=== PATIENT | female | born 1980 | race African-American/Black ===

== ENCOUNTER 2017-02-01 04:02 | Emergency (ER) | payer MEDICARE, OTHER ==
[~2017-02-01] VITALS: Ht 167.6 cm; Wt 64.5 kg
[2017-02-01] VITALS (7 sets, daily range): BP systolic 114–133; BP diastolic 61–82; PULSE 68–81; RESP 15–18; TEMP 97.9; O2SAT 97–100
[~2017-02-01 04:02] MED LIST: LEVO-144 PO; METR500T10 PO
[2017-02-01] MEDS ORDERED: XANA1TAB2 PO (04:12)
[2017-02-01] MEDS ORDERED: FURO1TAB62 PO (04:12)
[2017-02-01] MEDS ORDERED: POTA-163 PO (04:12)
--- NOTE | 2017-02-01 04:41 | PD ---
HPI Chief Complaint: Chest Pain Time Seen by Provider: 04:28 Travel History International Travel<30 days: No Contact w/Intl Traveler<30days: No Traveled to known affect area: No History of Present Illness HPI The patient is a 36-year-old [place] female who presents to the emergency department for chest pain. The patient states she developed chest pain yesterday which is located under the left breast and radiates along the left sternum. The pain is described as sharp, worse with lying supine, slightly worse with inspiration, and slightly improved with sitting upright. She denies any shortness of breath, nausea, or vomiting. She denies any trauma to left chest wall. The patient denies any history coronary artery disease, hypertension, hyperlipidemia, diabetes, or previous CAD. She does have a history of smoking marijuana, but denies any tobacco use. She denies any significant early family medical history for CAD. The patient does have a history of hereditary familial lymphedema for which she takes Lasix and potassium pills with chronic left lower extremity lymphedema. She denies any acute swelling of the right lower extremity. She denies any fever, chills, or sweats. She does note a dry and nonproductive cough which occasionally exacerbates her pain. The patient denies any recent hospitalizations, surgeries , or significant travel, however, does take oral contraceptive pills. PFSH Past Medical History Hx Anticoagulant Therapy: No Anemia: Yes Anxiety: Yes Depression: Yes Cancer: No Diminished Hearing: No Headaches: Yes Musculoskeletal: No Psychiatric: Yes Respiratory: No Immunizations Current: Yes Migraines: Yes Influenza Vaccination: No ?: Unknown LMP: CURRENTLY : 1 Para: 0 Miscarriage: 0 : 1 Ectopic : Yes Tubal Ligation: Yes Past Surgical History Abdominal Surgery: Yes Gynecologic Surgery: Yes Joint Replacement: No Other Surgery: Yes Social History Alcohol Use: Yes (occas) Tobacco Use: Yes Substance Use: Yes (marijuana use) Allergies-Medications (Allergen,Severity, Reaction): Coded Allergies: No Known Allergies (Verified , 02/01/17) Reported Meds & Prescriptions Reported Meds & Active Scripts Active Levonorgestrel-Ethinyl Estradiol (Triphasic) 0.05-03/0.075-0.04/0.125-0.03 Mg Tab 1 Tab PO DAILY Reported Xanax (Alprazolam) 1 Mg Tab 1 Mg PO Q12HR PRN Lasix (Furosemide) 20 Mg Tab 10 Mg PO DAILY Potassium Chloride ER (Potassium Chloride) 20 Meq Tab 20 Meq PO DAILY Review of Systems Except as stated in HPI: all other systems reviewed are Neg HENT: No: Lightheadedness Cardiovascular: Positive: Chest Pain or Discomfort, No: Dyspnea on exertion Respiratory: Positive: Cough, Orthopnea, No: Shortness of Breath Gastrointestinal: No: Nausea, Vomiting, Abdominal Pain Musculoskeletal: Positive: Edema (chronic left lower extremity lymphedema) Skin: No Rash Physical Exam Narrative GENERAL: Awake, alert, very pleasant 36-year-old female who appears her stated age and is in no acute respiratory distress. SKIN: Focused skin assessment warm/dry. HEAD: Atraumatic. Normocephalic. EYES: Pupils equal and round. No scleral icterus. No injection or drainage. ENT: No nasal bleeding or discharge. Mucous membranes pink and moist. NECK: Trachea midline. No JVD. CARDIOVASCULAR: Regular rate and rhythm. No murmur appreciated. Heart rate in the 70s. Palpation of the chest wall produces pain, however, does not reproduce her pain. RESPIRATORY: No accessory muscle use. Clear to auscultation. Breath sounds equal bilaterally. GASTROINTESTINAL: Abdomen soft, non-tender, nondistended. No rebound tenderness. MUSCULOSKELETAL: No obvious deformities. No clubbing. No cyanosis. Lymphedema the left lower extremity. NEUROLOGICAL: Awake and alert. No obvious cranial nerve deficits. Motor grossly within normal limits. Normal speech. PSYCHIATRIC: Appropriate mood and affect; insight and judgment normal. Data Data Last Documented VS Vital Signs Date Time Temp Pulse Resp B/P (MAP) Pulse Ox O2 Delivery O2 Flow Rate FiO2 02/01/17 05:26 72 16 115/74 (88) 100 Room Air 02/01/17 04:04 97.9 Orders Orders Electrocardiogram (02/01/17 ) Electrocardiogram (02/01/17 04:33) Ckmb (Isoenzyme) Profile (02/01/17 04:33) Complete Blood Count With Diff (02/01/17 04:33) Comprehensive Metabolic Panel (02/01/17 04:33) Magnesium (Mg) (02/01/17 04:33) Prothrombin Time / Inr (Pt) (02/01/17 04:33) Act Partial Throm Time (Ptt) (02/01/17 04:33) Troponin I (02/01/17 04:33) Lipase (02/01/17 04:33) Chest, Single Ap (02/01/17 04:33) Ecg Monitoring (02/01/17 04:33) Bilateral Bp Monitoring (02/01/17 04:33) Iv Access Insert/Monitor (02/01/17 04:33) Oximetry (02/01/17 04:33) Oxygen Administration (02/01/17 04:33) Aspirin Chew (Aspirin Chew) (02/01/17 04:45) Morphine Inj (Morphine Inj) (02/01/17 04:45) Sodium Chloride 0.9% Flush (Ns Flush) (02/01/17 04:45) Ondansetron Inj (Zofran Inj) (02/01/17 04:45) Ct Pulmonary Angiogram (02/01/17 ) Iohexol 350 Inj (Omnipaque 350 Inj) (02/01/17 05:08) CKMB (02/01/17 04:30) CKMB% (02/01/17 04:30) Potassium Chloride (Kcl) (02/01/17 05:15) Labs Laboratory Tests Test 02/01/17 04:30 White Blood Count 6.2 TH/MM3 Red Blood Count 4.12 MIL/MM3 Hemoglobin 11.5 GM/DL Hematocrit 35.4 % Mean Corpuscular Volume 85.9 FL Mean Corpuscular Hemoglobin 27.8 PG Mean Corpuscular Hemoglobin Concent 32.4 % Red Cell Distribution Width 13.5 % Platelet Count 233 TH/MM3 Mean Platelet Volume 9.7 FL Neutrophils (%) (Auto) 57.0 % Lymphocytes (%) (Auto) 31.5 % Monocytes (%) (Auto) 9.8 % Eosinophils (%) (Auto) 1.2 % Basophils (%) (Auto) 0.5 % Neutrophils # (Auto) 3.5 TH/MM3 Lymphocytes # (Auto) 1.9 TH/MM3 Monocytes # (Auto) 0.6 TH/MM3 Eosinophils # (Auto) 0.1 TH/MM3 Basophils # (Auto) 0.0 TH/MM3 CBC Comment DIFF FINAL Differential Comment Prothrombin Time 11.4 SEC Prothromb Time International Ratio 1.0 RATIO Activated Partial Thromboplast Time 29.6 SEC Blood Urea Nitrogen 13 MG/DL Creatinine 1.05 MG/DL Random Glucose 99 MG/DL Total Protein 7.0 GM/DL Albumin 3.6 GM/DL Calcium Level 8.0 MG/DL Magnesium Level 1.9 MG/DL Alkaline Phosphatase 47 U/L Aspartate Amino Transf (AST/SGOT) 15 U/L Alanine Aminotransferase (ALT/SGPT) 19 U/L Total Bilirubin 0.5 MG/DL Sodium Level 140 MEQ/L Potassium Level 3.2 MEQ/L Chloride Level 108 MEQ/L Carbon Dioxide Level 27.2 MEQ/L Anion Gap 5 MEQ/L Estimat Glomerular Filtration Rate 73 ML/MIN Total Creatine Kinase 193 U/L Creatine Kinase MB 1.3 NG/ML Creatine Kinase MB % 0.7 % Troponin I LESS THAN 0.02 NG/ML Lipase 215 U/L MDM Medical Decision Making Medical Screen Exam Complete: Yes Emergency Medical Condition: Yes Medical Record Reviewed: Yes Interpretation(s) EKG reveals normal sinus rhythm with a rate of 72. No ischemic changes or ectopy noted. No ID depression to suggest pericarditis. Laboratory Tests Test 02/01/17 04:30 White Blood Count 6.2 TH/MM3 Red Blood Count 4.12 MIL/MM3 Hemoglobin 11.5 GM/DL Hematocrit 35.4 % Mean Corpuscular Volume 85.9 FL Mean Corpuscular Hemoglobin 27.8 PG Mean Corpuscular Hemoglobin Concent 32.4 % Red Cell Distribution Width 13.5 % Platelet Count 233 TH/MM3 Mean Platelet Volume 9.7 FL Neutrophils (%) (Auto) 57.0 % Lymphocytes (%) (Auto) 31.5 % Monocytes (%) (Auto) 9.8 % Eosinophils (%) (Auto) 1.2 % Basophils (%) (Auto) 0.5 % Neutrophils # (Auto) 3.5 TH/MM3 Lymphocytes # (Auto) 1.9 TH/MM3 Monocytes # (Auto) 0.6 TH/MM3 Eosinophils # (Auto) 0.1 TH/MM3 Basophils # (Auto) 0.0 TH/MM3 CBC Comment DIFF FINAL Differential Comment Prothrombin Time 11.4 SEC Prothromb Time International Ratio 1.0 RATIO Activated Partial Thromboplast Time 29.6 SEC Blood Urea Nitrogen 13 MG/DL Creatinine 1.05 MG/DL Random Glucose 99 MG/DL Total Protein 7.0 GM/DL Albumin 3.6 GM/DL Calcium Level 8.0 MG/DL Magnesium Level 1.9 MG/DL Alkaline Phosphatase 47 U/L Aspartate Amino Transf (AST/SGOT) 15 U/L Alanine Aminotransferase (ALT/SGPT) 19 U/L Total Bilirubin 0.5 MG/DL Sodium Level 140 MEQ/L Potassium Level 3.2 MEQ/L Chloride Level 108 MEQ/L Carbon Dioxide Level 27.2 MEQ/L Anion Gap 5 MEQ/L Estimat Glomerular Filtration Rate 73 ML/MIN Total Creatine Kinase 193 U/L Creatine Kinase MB 1.3 NG/ML Creatine Kinase MB % 0.7 % Troponin I LESS THAN 0.02 NG/ML Lipase 215 U/L Last Impressions Chest X-Ray 02/01/17 0433 Signed Impressions: Service Date/Time: Wednesday, February 01, 2017 04:46 - CONCLUSION: Normal examination. Dameon Menezes MD CT reveals normal examination. The left second rib has a healed fracture. Differential Diagnosis Differential diagnosis includes pericarditis, myocarditis, acute coronary syndrome, pleurisy, pleural effusion, pericardial effusion, pulmonary embolism, pancreatitis, costochondritis. Narrative Course IV was established, labs are drawn and sent, and the patient was placed on cardiac telemetry monitoring and continuous pulse oximetry monitoring. EKG was ordered and interpreted. Bedside UA test was obtained, was negative. The patient was provided aspirin, morphine, and Zofran for her symptoms. Chest x-ray was obtained. As the patient is on oral contraceptive pills with poison deck chest pain and no CAD risk factors, pulmonary embolism is a strong consideration. Therefore, CT pulmonary angiogram was ordered. Troponin is negative. Potassium is low at 3.2, was replaced orally. The patient has signs and symptoms of possible pericarditis, she has pain is worse lying supine, improved with sitting upright, however, there is no significant EKG changes to suggest pericarditis. Troponin is negative, essentially ruling out myocarditis. CT pulmonary angiogram is negative. Patient will be treated for possible pericarditis with ibuprofen. She will be provided a copy of her CT results, chest x-ray results, and lab results at discharge to follow-up with her primary physician. The patient was reevaluated at 5:45 AM, her symptoms had improved. Diagnosis Primary Impression: Pleuritic chest pain Patient Instructions: General Instructions Additional Instructions: Medications as directed. Follow-up with your primary physician. Return if symptoms worsen or progress. Med/Other Pt SpecificInfo: Prescription(s) given Scripts Hydrocodone-Acetaminophen ([place]) 5-325 mg Tab 1 TAB PO Q6H Y for PAIN, #15 TAB 0 Refills Prov: Oscar Padilla MD 02/01/17 Ibuprofen (Ibuprofen) 600 Mg Tab 600 MG PO Q6H Y for Pain/Inflammation, #20 TAB 0 Refills Prov: Oscar Padilla MD 02/01/17 Disposition: 01 DISCHARGE HOME Condition: Stable Oscar Padilla MD Feb 01, 2017 04:41
[2017-02-01] MEDS ORDERED: SODIUM CHLORIDE 0.9% FLUSH 10 ML FLUSH IVF PRN (04:45)
[2017-02-01] MEDS ORDERED: ASPIRIN 81 MG CHEW TAB PO ONE (04:45)
[2017-02-01] MEDS ORDERED: ONDANSETRON HCL 4 MG/2 ML VIAL IV PUSH ONE (04:45)
[2017-02-01] MEDS ORDERED: MORPHINE SULFATE 4 MG/ML INJ IV PUSH ONE (04:45)
[2017-02-01 04:50] LABS: AUTOMATED NEUTROPHIL # 3.5 TH/MM3 (1.8-7.7); BASOPHIL % 0.5 % (0.0-2.0); EOSINOPHIL # 0.1 TH/MM3 (0-0.4); EOSINOPHIL % 1.2 % (0.0-4.0); HEMATOCRIT 35.4 % (35.0-46.0); HEMO FLAGS DIFF FINAL; LYMPH % 31.5 % (9.0-44.0); LYMPHOCYTE # 1.9 TH/MM3 (1.0-4.8); MEAN CELL VOLUME 85.9 FL (80.0-100.0); MEAN CORPUSCULAR HEMOGLOBIN 27.8 PG (27.0-34.0); MEAN CORPUSCULAR HGB CONC 32.4 % (32.0-36.0); MONO % 9.8 % (0.0-8.0); PLATELET COUNT 233 TH/MM3 (150-450); RED BLOOD COUNT 4.12 MIL/MM3 (4.00-5.30); RED CELL DISTRIBUTION WIDTH 13.5 % (11.6-17.2); WHITE BLOOD COUNT 6.2 TH/MM3 (4.0-11.0)
[2017-02-01 04:58] LABS: APTT (PATIENT) 29.6 SEC (24.3-30.1); PROTHROMBIN TIME - PATIENT 11.4 SEC (9.8-11.6)
--- NOTE | 2017-02-01 05:01 | RADRPT ---
EXAM DATE/TIME: 02/01/2017 04:46 [facility] COMPARISON: No previous studies available for comparison. INDICATIONS : Chest pain and shortness of breath. MEDICAL HISTORY : Lymphedema SURGICAL HISTORY : None. ENCOUNTER: Initial ACUITY: 4 - 6 days PAIN SCORE: 8/10 LOCATION: Left upper chest FINDINGS: A single view of the chest demonstrates the lungs to be symmetrically aerated without evidence of mas s, infiltrate or effusion. The cardiomediastinal contours are unremarkable. Osseous structures are intact. CONCLUSION: Normal examination. Dameon Menezes MD on February 01, 2017 at 4:59 Board Certified Radiologist. This report was verified electronically.
[2017-02-01 05:06] LABS: ANION GAP 5 MEQ/L (5-15); AST (GOT) 15 U/L (15-37); BICARBONATE 27.2 MEQ/L (21.0-32.0); BLOOD UREA NITROGEN 13 MG/DL (7-18); CHLORIDE 108 MEQ/L (98-107); GLOMERULAR FILTRATION RATE 73 ML/MIN (>89); MAGNESIUM 1.9 MG/DL (1.5-2.5); POTASSIUM 3.2 MEQ/L (3.5-5.1); SODIUM (NA) 140 MEQ/L (136-145)
[2017-02-01 05:07] LABS: ALT (GPT) 19 U/L (10-53)
[2017-02-01] MEDS ORDERED: IOHEXOL 350 MG/ML 10 ML VIAL (for RAD DIAG) IVCONTRAST ONE (05:08)
[2017-02-01 05:11] LABS: ALKALINE PHOSPHATASE 47 U/L (45-117); CREATINE KINASE 193 U/L (26-192); TOTAL BILIRUBIN ADULT 0.5 MG/DL (0.2-1.0)
[2017-02-01] MEDS ORDERED: POTASSIUM CHLORIDE 20 MEQ CONTROLLED RELEASE TAB PO ONE (05:15)
[2017-02-01 05:24] LABS: CKMB 1.3 NG/ML (0.5-3.6)
--- NOTE | 2017-02-01 05:43 | RADRPT ---
EXAM DATE/TIME: 02/01/2017 05:03 [facility] COMPARISON: No previous studies available for comparison. INDICATIONS : Left sided chest pain. IV CONTRAST: 75 cc Omnipaque 350 (iohexol) IV RADIATION DOSE: 22.95 CTDIvol (mGy) MEDICAL HISTORY : None SURGICAL HISTORY : Tubal ligation. ENCOUNTER: Initial ACUITY: 4 - 6 days PAIN SCALE: 6/10 LOCATION: chest TECHNIQUE: Volumetric scanning of the chest was performed using a pulmonary embolism protocol MIP images were re constructed. Using automated exposure control and adjustment of the mA and/or kV according to patien t size, radiation dose was kept as low as reasonably achievable to obtain optimal diagnostic quality images. DICOM format image data is available electronically for review and comparison. Follow-up recommendations for detected pulmonary nodules are based at a minimum on nodule size and pa tient risk factors according to Fleischner Society Guidelines. FINDINGS: PULMONARY ARTERIES: No filling defects are seen in the pulmonary arteries through the segmental level. LUNGS: There is no consolidation or pneumothorax . No concerning pulmonary nodule is visualized. PLEURAE: There is no pleural thickening or pleural effusion. MEDIASTINUM: There is good visualization of the great vessels of the middle mediastinum. No evidence of mediastin al or hilar adenopathy/mass. MUSCULOSKELETAL: Within normal limits for patient age. MISCELLANEOUS: The visualized upper abdominal organs demonstrate no acute abnormality. CONCLUSION: Normal examination. The left second rib has a healed fracture. Dameon Menezes MD on February 01, 2017 at 5:41 Board Certified Radiologist. This report was verified electronically.
[2017-02-01] MEDS ORDERED: IBUP-232 PO (05:47)
[2017-02-01] MEDS ORDERED: NORC5TAB PO (05:47)
[2017-02-01] MEDS ORDERED: KETOROLAC TROMETHAMINE 30 MG/ML (IVP) VIAL IV PUSH ONE (06:00)
--- NOTE | 2017-02-01 11:16 | EKG ---
Date Performed: 02/01/2017 Time Performed: 04:22:30 PTAGE: 36 years EKG: Sinus rhythm NORMAL ECG NO PREVIOUS TRACING DOCTOR: Alex Iqbal Interpretating Date/Time 02/01/2017 11:14:47
== END 2017-02-01 06:45 | disposition home or self-care (01) ==
LOC: NEPC 04:02
DX: R07.89 Other chest pain (principal); R05 Cough; R60.9 Edema, unspecified; D64.9 Anemia, unspecified; F41.9 Anxiety disorder, unspecified; F32.9 Major depressive disorder, single episode, unspecified; Z72.0 Tobacco use; Z79.899 Other long term (current) drug therapy
CPT/HCPCS: 71010; 71275; 80053; 82550; 82552; 83690; 83735; 84484; 85025; 85610; 85730; 93005; 96374; 96375; 99285; J1885; J2270; J2405; Q9967

== ENCOUNTER 2017-09-07 06:43 | Emergency (ER) | payer MEDICARE, OTHER ==
[~2017-09-07] VITALS: Ht 167.6 cm; Wt 65.0 kg
[~2017-09-07 06:43] MED LIST changes: +FURO1TAB62 PO; -METR500T10 PO; +XANA1TAB2 PO
[2017-09-07 06:49] VITALS: BP 113/67; PULSE 72; RESP 16; TEMP 97.6; O2SAT 100
[2017-09-07] MEDS ORDERED: SODIUM CHLORIDE 0.9% FLUSH 10 ML FLUSH IVF PRN (07:00)
[2017-09-07] MEDS ORDERED: ASPIRIN 81 MG CHEW TAB PO ONE (07:00)
[2017-09-07 07:01] VITALS: BP 121/77; PULSE 70; RESP 18; O2SAT 100
[2017-09-07] MEDS ORDERED: POTA10CA PO (07:16)
[2017-09-07] MEDS ORDERED: LORazepam 2 MG/ML VIAL IV PUSH ONE (07:30)
--- NOTE | 2017-09-07 07:33 | PD ---
HPI . Chest pain Chief Complaint: Chest Pain Time Seen by Provider: 07:00 Travel History International Travel<30 days: No Contact w/Intl Traveler<30days: No Traveled to known affect area: No History of Present Illness HPI This patient presents with a chief complaint of chest pain which started about 6 PM last night. She believes that her chest pain is secondary to a stressful event involving 1 of her cousins. She states that the cousin is ill and that she and her cousin are very close. She is concerned about his well-being. She reports a long-standing history of anxiety and believes that her anxiety was exacerbated by stress over her cousin. She states that the chest pain comes and goes. She describes it as an aching sensation. She rates her discomfort at 8/10. PFSH Past Medical History Hx Anticoagulant Therapy: No Anemia: Yes Anxiety: Yes Depression: Yes Cancer: No Diminished Hearing: No Headaches: Yes Musculoskeletal: No Psychiatric: Yes Respiratory: No Immunizations Current: Yes Migraines: Yes ?: Not LMP: 09/04/17 : 1 Para: 0 Miscarriage: 0 : 1 Ectopic : Yes Tubal Ligation: Yes Past Surgical History Abdominal Surgery: Yes Gynecologic Surgery: Yes Joint Replacement: No Other Surgery: Yes Social History Alcohol Use: Yes (occas) Tobacco Use: Yes Substance Use: Yes (marijuana use) Allergies-Medications (Allergen,Severity, Reaction): Coded Allergies: No Known Allergies (Verified Adverse Reaction, Unknown, 09/07/17) Reported Meds & Prescriptions Reported Meds & Active Scripts Active Reported Potassium Chloride ER (Potassium Chloride) 10 Meq Cap 10 Meq PO DAILY Xanax (Alprazolam) 1 Mg Tab 1 Mg PO Q12HR PRN Lasix (Furosemide) 20 Mg Tab 10 Mg PO DAILY Review of Systems Except as stated in HPI: all other systems reviewed are Neg Cardiovascular: Positive: Chest Pain or Discomfort Psychiatric: Positive: Anxiety Physical Exam Narrative GENERAL: The patient is crying. SKIN: warm/dry. HEAD: Normocephalic. Atraumatic. EYES: Pupils equal and round. No scleral icterus. No injection or drainage. ENT: No nasal bleeding or discharge. Mucous membranes pink and moist. NECK: Trachea midline. Full range of motion without pain.. CARDIOVASCULAR: Regular rate and rhythm. Heart sounds normal. RESPIRATORY: No accessory muscle use. Clear to auscultation. Breath sounds equal bilaterally. GASTROINTESTINAL: Abdomen soft. Nontender. Bowel sounds present. Nondistended. MUSCULOSKELETAL: No obvious deformities. NEUROLOGICAL: Awake and alert. No obvious cranial nerve deficits. Motor grossly within normal limits. Normal speech. PSYCHIATRIC: Tearful. Data Data Last Documented VS Vital Signs Date Time Temp Pulse Resp B/P (MAP) Pulse Ox O2 Delivery O2 Flow Rate FiO2 09/07/17 08:00 83 18 100/70 (80) 99 Room Air 09/07/17 06:49 97.6 Orders Orders Electrocardiogram (09/07/17 07:00) Basic Metabolic Panel (Bmp) (09/07/17 07:00) Complete Blood Count With Diff (09/07/17 07:00) Magnesium (Mg) (09/07/17 07:00) Troponin I (09/07/17 07:00) Ecg Monitoring (09/07/17 07:00) Iv Access Insert/Monitor (09/07/17 07:00) Oximetry (09/07/17 07:00) Aspirin Chew (Aspirin Chew) (09/07/17 07:00) Sodium Chloride 0.9% Flush (Ns Flush) (09/07/17 07:00) Chest, Pa & Lat (09/07/17 07:00) Lorazepam Inj (Ativan Inj) (09/07/17 07:30) Labs Laboratory Tests Test 09/07/17 07:12 White Blood Count 5.0 TH/MM3 Red Blood Count 4.19 MIL/MM3 Hemoglobin 11.8 GM/DL Hematocrit 35.3 % Mean Corpuscular Volume 84.2 FL Mean Corpuscular Hemoglobin 28.1 PG Mean Corpuscular Hemoglobin Concent 33.3 % Red Cell Distribution Width 13.7 % Platelet Count 222 TH/MM3 Mean Platelet Volume 10.2 FL Neutrophils (%) (Auto) 46.5 % Lymphocytes (%) (Auto) 41.2 % Monocytes (%) (Auto) 9.9 % Eosinophils (%) (Auto) 2.0 % Basophils (%) (Auto) 0.4 % Neutrophils # (Auto) 2.3 TH/MM3 Lymphocytes # (Auto) 2.0 TH/MM3 Monocytes # (Auto) 0.5 TH/MM3 Eosinophils # (Auto) 0.1 TH/MM3 Basophils # (Auto) 0.0 TH/MM3 CBC Comment DIFF FINAL Differential Comment Blood Urea Nitrogen 8 MG/DL Creatinine 0.82 MG/DL Random Glucose 90 MG/DL Calcium Level 8.2 MG/DL Magnesium Level 1.9 MG/DL Sodium Level 141 MEQ/L Potassium Level 3.6 MEQ/L Chloride Level 109 MEQ/L Carbon Dioxide Level 27.2 MEQ/L Anion Gap 5 MEQ/L Estimat Glomerular Filtration Rate 96 ML/MIN Troponin I LESS THAN 0.02 NG/ML MDM Medical Decision Making Medical Screen Exam Complete: Yes Emergency Medical Condition: Yes Medical Record Reviewed: Yes (She has not been seen here for any significant medical problems. However, she reports hereditary lymphedema and anxiety.) Interpretation(s) EKG shows a sinus rhythm with no STT wave changes. Differential Diagnosis Differential diagnosis of chest pain includes but is not limited to musculoskeletal pain, pulmonary embolism, acute coronary syndrome, pneumonia, pleurisy Narrative Course This patient presents with chest pain that started after a stressful emotional event last night. A chest pain workup is in process. However, her chest pain is most likely secondary to anxiety. In addition to aspirin, she is being given Ativan. Last Impressions Chest X-Ray 09/07/17 0700 Signed Impressions: Service Date/Time: Thursday, September 07, 2017 07:30 - CONCLUSION: No acute disease. Ace Leonard MD CBC & BMP Diagram 09/07/17 07:12 Calcium Level 8.2 L, Magnesium Level 1.9 trop <0.02 This patient's chest pain is most likely secondary to anxiety. Her initial evaluation is negative. I feel that she is safe for discharge to home. Diagnosis Primary Impression: Chest pain Qualified Codes: R07.9 - Chest pain, unspecified Additional Impression: Anxiety Patient Instructions: Anxiety (DC), General Instructions Disposition: 01 DISCHARGE HOME Condition: Stable Anitha Osuna MD Sep 07, 2017 07:33
--- NOTE | 2017-09-07 07:40 | RADRPT ---
EXAM DATE/TIME: 09/07/2017 07:30 [facility] COMPARISON: No previous studies available for comparison. INDICATIONS : Chest pain. MEDICAL HISTORY : None. SURGICAL HISTORY : Tubal ligation. ENCOUNTER: Initial ACUITY: 2 days PAIN SCORE: 5/10 LOCATION: Bilateral chest FINDINGS: PA and lateral views of the chest demonstrate the lungs to be symmetrically aerated without evidence of mass, infiltrate or effusion. The cardiomediastinal contours are unremarkable. Osseous structure s are intact. CONCLUSION: No acute disease. Ace Leonard MD on September 07, 2017 at 7:38 Board Certified Radiologist. This report was verified electronically.
[2017-09-07 08:00] VITALS: BP 100/70; PULSE 83; RESP 18; O2SAT 99
[2017-09-07 08:23] LABS: AUTOMATED NEUTROPHIL # 2.3 TH/MM3 (1.8-7.7); BASOPHIL % 0.4 % (0.0-2.0); EOSINOPHIL # 0.1 TH/MM3 (0-0.4); HEMATOCRIT 35.3 % (35.0-46.0); HEMOGLOBIN 11.8 GM/DL (11.6-15.3); LYMPH % 41.2 % (9.0-44.0); MEAN CELL VOLUME 84.2 FL (80.0-100.0); MEAN CORPUSCULAR HEMOGLOBIN 28.1 PG (27.0-34.0); MEAN CORPUSCULAR HGB CONC 33.3 % (32.0-36.0); MEAN PLATELET VOLUME 10.2 FL (7.0-11.0); MONO % 9.9 % (0.0-8.0); MONOCYTE # 0.5 TH/MM3 (0-0.9); NEUT % 46.5 % (16.0-70.0); PLATELET COUNT 222 TH/MM3 (150-450); RED BLOOD COUNT 4.19 MIL/MM3 (4.00-5.30); RED CELL DISTRIBUTION WIDTH 13.7 % (11.6-17.2)
[2017-09-07 08:38] LABS: BICARBONATE 27.2 MEQ/L (21.0-32.0); BLOOD UREA NITROGEN 8 MG/DL (7-18); CALCIUM 8.2 MG/DL (8.5-10.1); CHLORIDE 109 MEQ/L (98-107); CREATININE 0.82 MG/DL (0.50-1.00); GLOMERULAR FILTRATION RATE 96 ML/MIN (>89); GLUCOSE,RANDOM 90 MG/DL (74-106); MAGNESIUM 1.9 MG/DL (1.5-2.5); SODIUM (NA) 141 MEQ/L (136-145)
[2017-09-07 08:43] LABS: TROPONIN I LESS THAN 0.02 NG/ML (0.02-0.05)
[2017-09-07 08:56] VITALS: BP 100/70; PULSE 72; RESP 16; O2SAT 100
[2017-09-07 09:27] VITALS: BP 97/55
--- NOTE | 2017-09-07 14:39 | EKG ---
Date Performed: 09/07/2017 Time Performed: 07:05:44 PTAGE: 37 years EKG: Sinus rhythm NORMAL ECG Since PREVIOUS TRACING , no significant change noted PREVIOUS TRACIN02/01/2017 04.22.30 DOCTOR: Matthias Severino Interpretating Date/Time 09/07/2017 14:37:28
== END 2017-09-07 09:29 | disposition home or self-care (01) ==
LOC: NEPC 06:43
DX: R07.9 Chest pain, unspecified (principal); F41.9 Anxiety disorder, unspecified; F32.9 Major depressive disorder, single episode, unspecified; Q82.0 Hereditary lymphedema; F17.200 Nicotine dependence, unspecified, uncomplicated; F12.90 Cannabis use, unspecified, uncomplicated
CPT/HCPCS: 71046; 80048; 83735; 84484; 85025; 93005; 96374; 99285; J2060